=== PATIENT | male | born 1980 | race Caucasian/White ===

== ENCOUNTER 2018-03-09 21:41 | Emergency (ER) | payer BC, SELFPAY | END 2018-03-09 22:19 | disposition home or self-care (01) | LOC: ERS 21:41 | DX: N61.1 Abscess of the breast and nipple (principal); Z87.891 Personal history of nicotine dependence | CPT/HCPCS: 99283 ==

== ENCOUNTER 2018-08-13 08:23 | Emergency (ER) | payer SELFPAY ==
[2018-08-13 09:33] LABS: #Basophils 0.1 thou/uL (0.0-0.2); #Eosinphils 0.2 thou/uL (0.0-0.7); #Monocytes 0.4 thou/uL (0.11-0.59); %Basophils 1.7 % (0.0-1.0); %Eosinophils 4.9 % (0.0-10.0); %Lymphocytes 21.3 % (21.0-51.0); %Monocytes 7.5 % (0.0-10.0); %Neutrophils 64.6 % (42.0-75.0); Hemoglobin 16.4 g/dL (14.0-18.0); Mean Corpuscular HGB CONC 33.8 g/dL (32.0-36.0); Mean Corpuscular Hemoglobin 30.9 pg (27.0-31.0); Mean Corpuscular Volume 91.3 fL (78.0-98.0); Mean Platelet Volume 8.5 fL (7.4-10.4); Platelet Count 170 thou/uL (130-400); White Blood Cell (WBC) Count 4.7 thou/uL (4.8-10.8)
[2018-08-13 09:49] LABS: ALT (SGPT) 21 U/L (8-55); AST (SGOT) 23 U/L (5-34); Albumin 4.9 g/dL (3.5-5.0); Alkaline Phosphatase 66 U/L (40-150); Anion Gap 13 mmol/L (10-20); BUN (Urea Nitrogen) 18 mg/dL (8.9-20.6); Bilirubin, Total 0.9 mg/dL (0.2-1.2); Calc. Creatinine Clearance 0 mL/min (70-130); Calcium 9.9 mg/dL (7.8-10.44); Carbon Dioxide 28 mmol/L (22-29); Chloride 102 mmol/L (98-107); Estimated GFR-MDRD 72; Glucose 99 mg/dL (70-105); Potassium 4.1 mmol/L (3.5-5.1); Protein, Total 7.9 g/dL (6.0-8.3); Sodium 139 mmol/L (136-145)
[2018-08-13 09:57] LABS: Bilirubin Negative (Negative); Blood, Urine Large (Negative); Clarity CLEAR (Clear); Glucose, Urine (Dipstick) Negative (Negative); Leukocyte Negative (Negative); Nitrite Negative (Negative); Protein, Urine (Dipstick) Trace mg/dL (Neg-Trace); Specific Gravity, Urine 1.021 (1.002-1.036)
[2018-08-13 09:59] LABS: Bacteria/HPF None Seen HPF (None Seen); Hyaline Casts/LPF 0-3 HYALINE CAST LPF (0-3 Hyaline); Pathc Cast-AUWi Flag 0.68 (0-2.49); RBC/HPF GREATER THAN 50-TNTC HPF (0-3); Squamous Epithelial None Seen HPF (0-3); WBC/HPF 0-3 HPF (0-3)
--- NOTE | 2018-08-13 10:00 | CT ---
CT abdomen and pelvis noncontrast HISTORY: Right flank pain. FINDINGS: The right renal collecting system and ureter are mildly distended to the level of a 0.4 cm calculus within the distal right ureter. No other urinary tract calcifications are evident. The left renal collecting system, ureter, and urinary bladder are decompressed. Additional phleboliths ar e apparent within the pelvis. Lack of contrast limits evaluation for other abnormalities. Small hyperdense stone within the gallbla dder fundus. IMPRESSION: Partial obstruction at a 4 mm distal right ureteral calculus. Cholelithiasis.
[2018-08-13] MEDS ORDERED: Ketorolac Tromethamine 30 MG/ML VIAL ONE (10:16)
[2018-08-13] MEDS ORDERED: Morphine 4 MG/ML VIAL ONE (10:16)
== END 2018-08-13 11:05 | disposition home or self-care (01) ==
LOC: ERS 08:23
DX: N20.1 Calculus of ureter (principal); F17.210 Nicotine dependence, cigarettes, uncomplicated
CPT/HCPCS: 74176; 80053; 81003; 81015; 85025; 96361; 96374; 96375; J1885; J2270

== ENCOUNTER 2019-05-09 23:08 | Emergency (ER) | payer SELFPAY ==
[2019-05-10] MEDS ORDERED: Ketorolac Tromethamine 30 MG/ML VIAL ONE (00:40)
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
== END 2019-05-10 01:27 | disposition home or self-care (01) ==
LOC: ERS 23:08
DX: S50.311A Abrasion of right elbow, initial encounter (principal); S80.211A Abrasion, right knee, initial encounter; S70.211A Abrasion, right hip, initial encounter; F17.210 Nicotine dependence, cigarettes, uncomplicated; V20.0XXA Motorcycle driver injured in collision with pedestrian or animal in nontraffic accident, initial encounter
CPT/HCPCS: 71046; 96372; J1885

== ENCOUNTER 2019-12-18 19:50 | Inpatient (IN) | payer SELFPAY ==
[~2019-12-18 19:50] MED LIST: Iopamidol-370 76% 500 ML 1 ML ONE
[2019-12-18] MEDS ORDERED: Tranexamic Acid 1,000 MG/10 ML VIAL ONE ×3 (19:54→19:57)
[2019-12-18] MEDS ORDERED: Boostrix 0.5 ML (Tdap) VIAL ONE (19:54)
[2019-12-18] MEDS ORDERED: Fentanyl 100 MCG/2 ML VIAL ONE ×2 (19:54→22:07)
[2019-12-18 20:08] LABS: #Basophils 0.1 thou/uL (0.0-0.2); #Eosinphils 0.2 thou/uL (0.0-0.7); #Lymphocytes 1.4 thou/uL (1.20-3.40); #Monocytes 0.5 thou/uL (0.11-0.59); #Neutrophils 5.7 thou/uL (1.40-6.50); %Basophils 0.8 % (0.0-1.0); %Eosinophils 2.1 % (0.0-10.0); %Lymphocytes 17.9 % (21.0-51.0); %Monocytes 5.9 % (0.0-10.0); %Neutrophils 73.3 % (42.0-75.0); Hemoglobin 14.9 g/dL (14.0-18.0); Mean Corpuscular HGB CONC 33.2 g/dL (32.0-36.0); Mean Corpuscular Hemoglobin 30.5 pg (27.0-31.0); Mean Corpuscular Volume 91.8 fL (78.0-98.0); Mean Platelet Volume 8.1 fL (7.4-10.4); Platelet Count 178 thou/uL (130-400); RBC Distribution Width 11.7 % (11.5-14.5); White Blood Cell (WBC) Count 7.8 thou/uL (4.8-10.8)
[2019-12-18 20:14] LABS: INR-International Normal Ratio 1.1; Prothrombin Time 14.3 sec (12.0-14.7)
[2019-12-18 20:23] LABS: ALT (SGPT) 27 U/L (8-55); AST (SGOT) 34 U/L (5-34); Albumin 4.4 g/dL (3.5-5.0); Alkaline Phosphatase 64 U/L (40-110); Anion Gap 11 mmol/L (10-20); BUN (Urea Nitrogen) 19 mg/dL (8.9-20.6); Bilirubin, Total 0.9 mg/dL (0.2-1.2); Calc. Creatinine Clearance 0 mL/min (70-130); Calcium 8.4 mg/dL (7.8-10.44); Carbon Dioxide 27 mmol/L (22-29); Chloride 103 mmol/L (98-107); Estimated GFR-MDRD Greater than 90; Globulin 2.9 g/dL (2.4-3.5); Glucose 119 mg/dL (70-105); Potassium 3.9 mmol/L (3.5-5.1); Protein, Total 7.3 g/dL (6.0-8.3); Sodium 137 mmol/L (136-145)
[2019-12-18] MEDS ORDERED: Morphine 4 MG/ML VIAL ONE ×2 (20:24→20:26)
[2019-12-18 20:28] LABS: CKMB 1.2 ng/mL (0-6.6); Troponin I Less than 0.010 ng/mL (< 0.028)
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
[2019-12-18] MEDS ORDERED: Ketorolac Tromethamine 30 MG/ML VIAL ONE (20:55)
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
[2019-12-18] MEDS ORDERED: Lidocaine 1% (PF) 30 ML VIAL ONE (21:37)
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
[2019-12-18] MEDS ORDERED: Promethazine HCl 25 MG/ML VIAL IM PRN (22:29)
[2019-12-18] MEDS ORDERED: Dextrose 5% in Water 1,000 ML IV PRN (22:29)
[2019-12-18] MEDS ORDERED: Morphine 2 MG/ML VIAL SLOW IVP PRN (22:29)
[2019-12-18] MEDS ORDERED: Dextrose 50% Abboject 50 ML SYRINGE SLOW IVP PRN (22:29)
[2019-12-18] MEDS ORDERED: Ondansetron ODT 4 MG TAB PO PRN (22:29)
[2019-12-18] MEDS ORDERED: hydrALAZINE 20 MG/ML VIAL SLOW IVP PRN (22:29)
[2019-12-18] MEDS ORDERED: Ondansetron PF 4 MG/2 ML Vial IVP PRN (22:29)
[2019-12-18 22:39] VITALS: BMI 27.1
[2019-12-18] MEDS ORDERED: Famotidine 20 MG TAB PO SCH (22:45)
[2019-12-18] MEDS: Cyclobenzaprine 10 MG TAB PO PRN (22:58)
[2019-12-18] MEDS: Ketorolac Tromethamine 30 MG/ML VIAL IVP SCH (22:59)
[2019-12-18] MEDS: Sodium Chloride 0.9% 1,000 ML IV SCH (23:01)
[2019-12-19] MEDS: Morphine 4 MG/ML VIAL SLOW IVP PRN ×2 (00:51→06:41)
[2019-12-19] MEDS: Ketorolac Tromethamine 30 MG/ML VIAL IVP SCH ×2 (05:14→12:40)
[2019-12-19 05:53] LABS: #Eosinphils 0.1 thou/uL (0.0-0.7); #Lymphocytes 0.7 thou/uL (1.20-3.40); #Monocytes 0.4 thou/uL (0.11-0.59); #Neutrophils 6.3 thou/uL (1.40-6.50); %Basophils 0.5 % (0.0-1.0); %Eosinophils 1.3 % (0.0-10.0); %Lymphocytes 8.6 % (21.0-51.0); %Monocytes 5.8 % (0.0-10.0); %Neutrophils 83.8 % (42.0-75.0); Hemoglobin 12.9 g/dL (14.0-18.0); Mean Corpuscular HGB CONC 33.6 g/dL (32.0-36.0); Mean Corpuscular Hemoglobin 30.7 pg (27.0-31.0); Mean Corpuscular Volume 91.5 fL (78.0-98.0); Mean Platelet Volume 8.3 fL (7.4-10.4); Platelet Count 161 thou/uL (130-400); RBC Distribution Width 11.7 % (11.5-14.5); Red Blood Cell (RBC) Count 4.19 mill/uL (4.70-6.10); White Blood Cell (WBC) Count 7.6 thou/uL (4.8-10.8)
[2019-12-19 06:13] LABS: Anion Gap 10 mmol/L (10-20); BUN (Urea Nitrogen) 21 mg/dL (8.9-20.6); Calc. Creatinine Clearance 136 mL/min (70-130); Calcium 7.7 mg/dL (7.8-10.44); Carbon Dioxide 25 mmol/L (22-29); Chloride 106 mmol/L (98-107); Estimated GFR-MDRD Greater than 90; Glucose 128 mg/dL (70-105); Sodium 137 mmol/L (136-145)
[2019-12-19] MEDS: Sodium Chloride 0.9% 1,000 ML IV SCH ×2 (06:50→12:43)
[2019-12-19] MEDS ORDERED: CEFAZOLIN 2 GM in Premix Bag 1 BAG IVPB SCH (08:00)
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
[2019-12-19] MEDS: Famotidine 20 MG TAB PO SCH ×2 (09:59→20:21)
--- NOTE | 2019-12-19 10:49 | RAD ---
XR Shoulder Lt 3 View STANDARD HISTORY: Injury, left shoulder pain FINDINGS: No fracture or dislocation is identified.
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
[2019-12-19] MEDS ORDERED: Dexamethasone 20 MG/5 ML VIAL ONE (12:49)
[2019-12-19] MEDS ORDERED: Ondansetron PF 4 MG/2 ML Vial ONE (12:49)
[2019-12-19] MEDS ORDERED: Ketorolac Tromethamine 30 MG/ML VIAL ONE (12:49)
[2019-12-19] MEDS ORDERED: PROPOFOL 200 MG/20 ML VIAL ONE (12:49)
[2019-12-19] MEDS ORDERED: diphenhydrAMINE 50 MG/ML VIAL ONE (12:49)
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
[2019-12-19] MEDS ORDERED: ceFAZolin 1 GM/D5W 1 GM in Premix Bag 1 BAG IVPB SCH (14:00)
[2019-12-19] MEDS ORDERED: Fentanyl 100 MCG/2 ML VIAL ONE (15:05)
[2019-12-19] MEDS ORDERED: Midazolam HCl 2 mg/2 ml Vial ONE (15:05)
[2019-12-19] MEDS ORDERED: Succinylcholine 200 MG/10 ml SYRINGE FS ONE (16:13)
[2019-12-19] MEDS ORDERED: HYDROmorphone 2 MG/ML VIAL SLOW IVP PRN (16:31)
[2019-12-19] MEDS ORDERED: PACU-Morphine 4MG/ML VIAL SLOW IVP PRN (16:31)
[2019-12-19] MEDS ORDERED: Morphine Sulfate 2 MG/ML SYRINGE SLOW IVP PRN (16:31)
[2019-12-19] MEDS ORDERED: Meperidine HCl/PF 25 MG/ML VIAL SLOW IVP PRN (16:31)
[2019-12-19] MEDS ORDERED: Ondansetron HCl/PF 4 MG/2 ML Vial IVP PRN (16:31)
[2019-12-19] MEDS: traMADol HCl 50 MG TAB PO SCH (20:21)
[2019-12-19] MEDS: Ibuprofen 600 MG TAB PO SCH (20:22)
[2019-12-19] MEDS: Acetaminophen 325 MG TAB PO SCH (20:22)
[2019-12-19] MEDS: CEFAZOLIN 2 GM in Premix Bag 1 BAG IVPB SCH (21:32)
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
[2019-12-20] MEDS: traMADol HCl 50 MG TAB PO SCH ×4 (01:13→20:14)
[2019-12-20] MEDS: Acetaminophen 325 MG TAB PO SCH ×6 (01:14→20:14)
[2019-12-20] MEDS: CEFAZOLIN 2 GM in Premix Bag 1 BAG IVPB SCH (05:08)
[2019-12-20] MEDS: Ibuprofen 600 MG TAB PO SCH ×3 (05:08→20:14)
[2019-12-20 05:18] LABS: #Lymphocytes 0.8 thou/uL (1.20-3.40); #Monocytes 0.4 thou/uL (0.11-0.59); #Neutrophils 6.4 thou/uL (1.40-6.50); %Basophils 0.3 % (0.0-1.0); %Eosinophils 0.4 % (0.0-10.0); %Lymphocytes 9.8 % (21.0-51.0); %Monocytes 5.7 % (0.0-10.0); %Neutrophils 83.8 % (42.0-75.0); Hemoglobin 10.9 g/dL (14.0-18.0); Mean Corpuscular HGB CONC 32.2 g/dL (32.0-36.0); Mean Corpuscular Hemoglobin 29.7 pg (27.0-31.0); Mean Corpuscular Volume 92.4 fL (78.0-98.0); Mean Platelet Volume 8.8 fL (7.4-10.4); Platelet Count 135 thou/uL (130-400); RBC Distribution Width 11.8 % (11.5-14.5); Red Blood Cell (RBC) Count 3.65 mill/uL (4.70-6.10); White Blood Cell (WBC) Count 7.6 thou/uL (4.8-10.8)
[2019-12-20 05:36] LABS: Anion Gap 11 mmol/L (10-20); BUN (Urea Nitrogen) 15 mg/dL (8.9-20.6); Calc. Creatinine Clearance 150 mL/min (70-130); Carbon Dioxide 23 mmol/L (22-29); Chloride 107 mmol/L (98-107); Estimated GFR-MDRD Greater than 90; Glucose 127 mg/dL (70-105); Phosphorus 2.4 mg/dL (2.3-4.7); Potassium 4.4 mmol/L (3.5-5.1); Sodium 137 mmol/L (136-145)
[2019-12-20] MEDS: Famotidine 20 MG TAB PO SCH ×2 (08:27→20:13)
[2019-12-20] MEDS: traMADol HCl 50 MG TAB PO PRN ×2 (08:30→14:03)
[2019-12-20] MEDS: Cyclobenzaprine 10 MG TAB PO PRN ×2 (14:02→20:16)
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
[2019-12-21] MEDS: Acetaminophen 325 MG TAB PO SCH ×4 (02:58→13:26)
[2019-12-21] MEDS: traMADol HCl 50 MG TAB PO SCH ×3 (02:59→13:27)
[2019-12-21] MEDS: Ibuprofen 600 MG TAB PO SCH ×2 (02:59→11:43)
[2019-12-21] MEDS: Famotidine 20 MG TAB PO SCH (08:15)
[2019-12-21 08:28] VITALS: TEMP 97.8
[2019-12-21] MEDS: Cyclobenzaprine 10 MG TAB PO PRN (09:42)
[2019-12-21] MEDS: traMADol HCl 50 MG TAB PO PRN (11:43)
[2019-12-21 14:21] VITALS: BP 100/67
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
--- NOTE | 2020-01-11 13:07 | EKG ---
Test Reason : Blood Pressure : / mmHG Vent. Rate : 096 BPM Atrial Rate : 096 BPM P-R Int : 150 ms QRS Dur : 110 ms QT Int : 364 ms P-R-T Axes : 051 101 034 degrees QTc Int : 459 ms Normal sinus rhythm Rightward axis Borderline ECG Confirmed by AMILCAR MURRAY DO ([id number]), website/blog editor CASSIE CRUZ ([id number]) on 01/11/2020 1:07:20 PM Referred By: Confirmed By:AMILCAR MURRAY DO
== END 2019-12-21 14:30 | disposition home or self-care (01) | DRG 571 ==
LOC: ERS 19:50 → SJJU 22:24
PROVIDERS: ADMIT Surgery; ATTEND Surgery
PROC: 3E0234Z Introduction of Serum, Toxoid and Vaccine into Muscle, Percutaneous Approach (ICD-10-PCS; principal; 2019-12-18)
PROC: 0KBS0ZZ Excision of Right Lower Leg Muscle, Open Approach (ICD-10-PCS; 2019-12-18)
PROC: 0JBQ0ZZ Excision of Right Foot Subcutaneous Tissue and Fascia, Open Approach (ICD-10-PCS; 2019-12-18)
DX: S81.011A Laceration without foreign body, right knee, initial encounter (principal); S32.10XA Unspecified fracture of sacrum, initial encounter for closed fracture; S32.599A Other specified fracture of unspecified pubis, initial encounter for closed fracture; S91.311A Laceration without foreign body, right foot, initial encounter; S82.491A Other fracture of shaft of right fibula, initial encounter for closed fracture; S92.811A Other fracture of right foot, initial encounter for closed fracture; F17.220 Nicotine dependence, chewing tobacco, uncomplicated; S92.321A Displaced fracture of second metatarsal bone, right foot, initial encounter for closed fracture; S92.331A Displaced fracture of third metatarsal bone, right foot, initial encounter for closed fracture; S80.811A Abrasion, right lower leg, initial encounter; V29.9XXA Motorcycle rider (driver) (passenger) injured in unspecified traffic accident, initial encounter; Y92.410 Unspecified street and highway as the place of occurrence of the external cause; Z23 Encounter for immunization
CPT/HCPCS: 12002; 27781; 36415; 36430; 70450; 71045; 71260; 72125; 72170; 74177; 80048; 80053; 82553; 83605; 83735; 84100; 84484; 85025; 85610; 85730; 86850; 86870; 86900; 86901; 90471; 90715; 93005; 96365; 96375; 96376; G0390; J0690; J1100; J1200; J1885; J2001; J2250; J2270; J2405; J2704; J3010; Q9967

== ENCOUNTER 2020-12-28 17:34 | Emergency (ER) | payer SELFPAY | END 2020-12-28 19:30 | disposition home or self-care (01) | LOC: ERS 17:34 | DX: J06.9 Acute upper respiratory infection, unspecified (principal); F17.290 Nicotine dependence, other tobacco product, uncomplicated | CPT/HCPCS: 99283 ==